=== PATIENT | female | born 1985 | race African-American/Black ===

== ENCOUNTER 2018-01-11 04:52 | Emergency (ER) | payer MEDICAID, OTHER | END 2018-01-11 07:50 | disposition home or self-care (01) | LOC: ERS 04:52 | DX: T40.7X1A Poisoning by cannabis (derivatives), accidental (unintentional), initial encounter (principal) | CPT/HCPCS: 99285 ==

== ENCOUNTER 2018-01-13 00:41 | Emergency (ER) | payer MEDICAID, OTHER ==
[2018-01-13] MEDS ORDERED: Ondansetron PF 4 MG/2 ML Vial ONE (01:04)
[2018-01-13] MEDS ORDERED: Morphine 4 MG/ML VIAL ONE (01:04)
[2018-01-13 01:50] LABS: BHCG - Serum Negative (NEGATIVE); Pregs Control Background? CLEAR/WHITE (CLR/WHITE); Pregs Control Bar Appear? YES (CONTROL BAR)
[2018-01-13 01:59] LABS: ALT (SGPT) 14 U/L (8-55); AST (SGOT) 18 U/L (5-34); Albumin 4.4 g/dL (3.5-5.0); Alkaline Phosphatase 64 U/L (40-150); Anion Gap 17 mmol/L (10-20); BUN (Urea Nitrogen) 29 mg/dL (7.0-18.7); Bilirubin, Total 0.6 mg/dL (0.2-1.2); Calc. Creatinine Clearance 0 mL/min (70-130); Calcium 10.2 mg/dL (7.8-10.44); Carbon Dioxide 22 mmol/L (22-29); Chloride 97 mmol/L (98-107); Estimated GFR-MDRD 50; Globulin 3.8 g/dL (2.4-3.5); Glucose 116 mg/dL (70-105); Lipase 20 U/L (8-78); Protein, Total 8.2 g/dL (6.0-8.3); Sodium 132 mmol/L (136-145)
[2018-01-13 02:04] LABS: PTT 26.4 SEC (22.9-36.1); Prothrombin Time 13.5 SEC (12.0-14.7)
[2018-01-13 02:06] LABS: Hemoglobin 13.5 g/dL (12.0-16.0); Mean Corpuscular HGB CONC 33.5 g/dL (32.0-36.0); Mean Corpuscular Hemoglobin 30.8 pg (27.0-31.0); Mean Corpuscular Volume 91.9 fL (78.0-98.0); Mean Platelet Volume 6.9 fL (7.4-10.4); Platelet Count 434 thou/uL (130-400); RBC Distribution Width 15.6 % (11.5-14.5); Red Blood Cell (RBC) Count 4.38 mill/uL (4.20-5.40); White Blood Cell (WBC) Count 11.3 thou/uL (4.8-10.8)
[2018-01-13 02:25] LABS: Band 4 % (5-11); Lymphocytes 14 % (21-51); MDiff Complete? YES; Monocytes 3 % (0-10); Neutrophil 79 % (42-75)
[2018-01-13 02:54] LABS: Bilirubin Negative (Negative); Blood, Urine Large (Negative); Clarity CLEAR (Clear); Glucose, Urine (Dipstick) Negative (Negative); Leukocyte Small (Negative); Nitrite Negative (Negative); Protein, Urine (Dipstick) 30 mg/dL (Neg-Trace); Urobilinogen 0.2 mg/dL (0.2-1.0)
[2018-01-13 02:57] LABS: Bacteria/HPF Rare-Few HPF (None Seen); Pathc Cast-AUWi Flag 0.87 (0-2.49); RBC/HPF 0-3 HPF (0-3)
[2018-01-13 03:10] LABS: Yeast-AUWi Flag 41.4 (0-25.0)
[2018-01-13 03:14] LABS: Hyaline Casts/LPF 0-3 HYALINE CAST LPF (0-3 Hyaline); Specific Gravity, Urine 1.045 (1.002-1.036); Yeast-All Forms None Seen HPF (None Seen)
--- NOTE | 2018-01-13 12:27 | CT ---
PRELIMINARY REPORT/[facility]/EMERGENCY AFTER HOURS PROCEDURE: EXAM: CT Abdomen and Pelvis With Contrast EXAM DATE/TIME: 01/13/2018 1:49 AM CLINICAL HISTORY: 32 years old, female; Pain; Abdominal pain; Acute; Prior surgery; Surgery date: 6+ months; Surgery ty pe: Gall blader and appy previously removed; Patient HX: PT reports abd pain for the past 5 days and active vomting with red emesis. 25mg phenergan given. 18 g r ac. Sbo vs ilius? TECHNIQUE: Axial computed tomography images of the abdomen and pelvis with intravenous contrast. Coronal reforma tted images were created and reviewed. COMPARISON: No relevant prior studies available. FINDINGS: Lower thorax: The lung bases are clear. Small hiatal hernia. ABDOMEN: Liver: There is fatty infiltration of the liver. There is a very small subcentimeter low attenuation area in the liver. The appearance is nonspecific, but statistically this most likely represents a small cyst or cavernous hemangioma. Gallbladder and bile ducts: Prior cholecystectomy, probably no significant biliary tree dilation. Pancreas: Unremarkable. Spleen: Unremarkable. Adrenals: Unremarkable. Kidneys and ureters: Unremarkable. Stomach and bowel: Possibility of slightly thickened mucosa/wall in the distal antrum of the stomach. This is a nonspecific appearance, and could be transient on CT, but could also represent evidence fo r gastritis or peptic ulcer disease. Please correlate clinically. There are no CT findings to strongly suggest diverticulitis. Appendix: Reportedly, there has been prior appendectomy. PELVIS: Bladder: Unremarkable as visualized. Reproductive: Unremarkable as visualized. ABDOMEN and PELVIS: Intraperitoneal space: No free air, ascites, or bowel distention. No abnormal mass or fluid collection in the pelvis. Bones/joints: No significant acute finding. Soft tissues: No significant acute finding. Vasculature: No evidence for abdominal aortic aneurysm. Lymph nodes: No retroperitoneal adenopathy. IMPRESSION: 1. No free air or bowel distention. No evidence for bowel obstruction. 2. Possible thickened mucosa/wall in the distal stomach, see above discussion. 3. Small hiatal hernia. 4. Other findings discussed above. Thank you for allowing us to participate in the care of your patient. Dictated and Authenticated by: Michael Sanches MD 01/13/2018 2:27 AM Central Time ([place] & [place]) FINAL REPORT EMERGENT AFTER HOURS CT ABDOMEN AND PELVIS: IMPRESSION: Agree with the preliminary interpretation given by MARGARITA. POS: PREMA
[2018-01-13] MEDS ORDERED: Iopamidol 370 76% 100 ML VIAL ONE (13:39)
== END 2018-01-13 03:40 | disposition home or self-care (01) ==
LOC: ERS 00:41
DX: R10.13 Epigastric pain (principal); R11.2 Nausea with vomiting, unspecified; F17.210 Nicotine dependence, cigarettes, uncomplicated
CPT/HCPCS: 36415; 74177; 80053; 81003; 81015; 83690; 84703; 85025; 85610; 85730; 86850; 86900; 86901; 96361; 96374; 96375; J2270; J2405

== ENCOUNTER 2018-02-13 11:10 | Emergency (ER) | payer OTHER | END 2018-02-13 12:34 | disposition home or self-care (01) | LOC: ERS 11:10 | DX: J06.9 Acute upper respiratory infection, unspecified (principal); F41.9 Anxiety disorder, unspecified; F17.210 Nicotine dependence, cigarettes, uncomplicated | CPT/HCPCS: 99283 ==

== ENCOUNTER 2018-09-01 03:51 | Inpatient (IN) | payer OTHER ==
[2018-09-01] MEDS ORDERED: Lorazepam 2 MG/ML VIAL ONE (04:19)
[2018-09-01 05:14] LABS: #Lymphocytes 1.9 thou/uL (1.20-3.40); #Monocytes 0.8 thou/uL (0.11-0.59); #Neutrophils 9.6 thou/uL (1.40-6.50); %Basophils 0.4 % (0.0-1.0); %Eosinophils 0.2 % (0.0-10.0); %Lymphocytes 15.2 % (21.0-51.0); %Monocytes 6.7 % (0.0-10.0); %Neutrophils 77.5 % (42.0-75.0); Hemoglobin 12.5 g/dL (12.0-16.0); Mean Corpuscular HGB CONC 33.1 g/dL (32.0-36.0); Mean Corpuscular Hemoglobin 29.6 pg (27.0-31.0); Mean Corpuscular Volume 89.5 fL (78.0-98.0); Mean Platelet Volume 6.6 fL (7.4-10.4); Platelet Count 399 thou/uL (130-400); RBC Distribution Width 15.8 % (11.5-14.5); Red Blood Cell (RBC) Count 4.23 mill/uL (4.20-5.40); White Blood Cell (WBC) Count 12.4 thou/uL (4.8-10.8)
[2018-09-01 05:29] LABS: ALT (SGPT) 12 U/L (8-55); AST (SGOT) 23 U/L (5-34); Acetaminophen Less than 6.0 mcg/mL (10.0-30.0); Alcohol Less than 10 mg/dL (Less than 10); Alkaline Phosphatase 57 U/L (40-150); Anion Gap 16 mmol/L (10-20); BUN (Urea Nitrogen) 32 mg/dL (7.0-18.7); Bilirubin, Total 0.6 mg/dL (0.2-1.2); CK (CPK) 925 U/L (29-168); Calc. Creatinine Clearance 0 mL/min (70-130); Calcium 9.2 mg/dL (7.8-10.44); Carbon Dioxide 19 mmol/L (22-29); Chloride 103 mmol/L (98-107); Estimated GFR-MDRD 38; Globulin 3.3 g/dL (2.4-3.5); Glucose 110 mg/dL (70-105); Magnesium 2.1 mg/dL (1.6-2.6); Potassium 3.7 mmol/L (3.5-5.1); Protein, Total 7.3 g/dL (6.0-8.3); Salicylate Less than 8.0 mg/dL (15.0-30.0); Sodium 134 mmol/L (136-145)
[2018-09-01] MEDS ORDERED: Acetaminophen 325 MG TAB PO PRN (06:14)
[2018-09-01] MEDS ORDERED: Senokot S 8.6-50 MG TAB PO PRN (06:14)
[2018-09-01] MEDS ORDERED: Ondansetron PF 4 MG/2 ML Vial IVP PRN (06:18)
[2018-09-01 08:21] LABS: INR-International Normal Ratio 1.1; Prothrombin Time 14.1 SEC (12.0-14.7)
[2018-09-01] MEDS ORDERED: Famotidine/PF 20 mg/2ml Vial SLOW IVP SCH ×2 (09:00→22:15)
[2018-09-01] MEDS: Sodium Chloride 0.9% 1,000 ML IV SCH ×3 (09:00→20:37)
[2018-09-01 09:22] VITALS: BMI 21.7
[2018-09-01] MEDS: Heparin 5,000 UNITS/ML VIAL SC SCH ×3 (10:31→20:36)
[2018-09-01] MEDS: Cephalexin 250 MG CAP PO SCH ×3 (12:30→23:40)
--- NOTE | 2018-09-01 13:28 | HP ---
CHIEF COMPLAINT: Significant nausea, vomiting, and altered mental status. HISTORY OF PRESENT ILLNESS: The patient is a 32-year-old female, who initially presented to the hospital actually in [place] with complaints of abdominal pain; however, she left AMA. The patient was brought back in by the patient's mother for having continues nausea and also abdominal pain. There is a history of drug abuse; however, the mother states that she has not been doing any drugs or smoking or drinking any alcohol. She apparently in the ER in [place] was being very uncooperative and was trying to get out of bed and not really following commands. She was redirected and she was given some sedation medications. The patient's mother stated that last week, she had some dental pain and was given antibiotics and NSAIDs. She still is on antibiotics. She does not recall the name of antibiotics. The mother also states that she has been pacing and not been sleeping very much for the past 3 days. She states that her daughter has anxiety and sometimes the anxiety takes over and she just cannot sleep. She also has been complaining of nausea, vomiting, and some diarrhea. PAST MEDICAL HISTORY: She has a history of anxiety and some drug use. SURGICAL HISTORY: Per mother, appendectomy and cholecystectomy. SOCIAL HISTORY: Currently denies any drug use; however, has history of K2 use. No smoking history. No alcohol use. She is a full code. Lives with her mother and daughter. ALLERGIES: SHE HAS NO KNOWN DRUG ALLERGIES. MEDICATIONS: According to the mother, she only is on antibiotic. She takes no other medications. FAMILY HISTORY: No history of significant heart disease. PHYSICAL EXAMINATION: VITAL SIGNS: Temperature of 98.8, respirations 18, pulse of 107, blood pressure of 122/86. She is 100% on room air. GENERAL: She is sedated, however, is arousable and follows commands. She did get up and walk to the bathroom. HEENT: Normocephalic and atraumatic. No lymphadenopathy noted. Pupils are equal and reactive to light. CV: S1 and S2 present. No murmurs, rubs, or gallops. LUNGS: Clear to auscultation. No rhonchi or wheezes noted. ABDOMEN: Soft. Mild pain upon palpation to lower abdominal area. EXTREMITIES: No edema. Pedal pulses are present x2. NEUROVASCULAR: No focal deficits noted. SKIN: No cuts, lesions, or bruises noted. LABORATORY RESULTS: As of the following; WBCs of 12.4, hemoglobin of 12.5, hematocrit of 37.8, and her platelets are 399. Chemistry; sodium of 134, potassium of 3.7, BUN of 32, creatinine 1.89. Her CK initially was 1200, it went down to 925; and her troponin was 0.010. Initially, her creatinine was 2.99. She also had an elevated calcium level, this was per earlier records from [place]. She had an EKG that indicated sinus tach. She did have a urine screen. Alcohol level was less than 10 and so was her salicylates and acetaminophen level. ASSESSMENT AND PLAN: The patient is a 32-year-old female, who presents to the hospital with some nausea, vomiting, and also some altered mental status. 1. Acute metabolic encephalopathy the patient on some IV hydration. Her CK is coming down. Unclear if this is secondary to drug use. We will check a UDS; however, if she is taking K2 that will not show up in her urine. Also, she did have a CT brain and a CT of abdomen and pelvis, which are both pending reads. According to my interpretation, CT brain did not show any acute abnormalities, and her CT of abdomen and pelvis showed some thickening of her stomach. I will wait for the official report per Radiology. 2. Acute kidney injury. I will start her on some IV hydration. She is urinating. Her CAT scan does not show any signs of hydronephrosis. We will continue to monitor. She probably mostly has a component of dehydration, this is most likely secondary to prerenal. 3. Nausea, vomiting, and abdominal pain, unclear. The patient is really not able to verbalize. She is a kind of drowsy. I will check a test, given her age of 32, and again she did have a CT of abdomen and pelvis. I will wait for the official read. She does not have a gallbladder, may consider right upper quadrant ultrasound. Also, we will start the patient on clear liquid diet. I will put the patient on a PPI for now. 4. History of anxiety. The patient on her medication records appears that she is supposed to be on Zoloft; however, I am unclear if she is really taking it or not. The patient's mother states that she needs a prescription. However, again, the patient is not in a state to be questioned right now. 5. Deep venous thrombosis prophylaxis. We will put the patient on some heparin. Job ID: [id number]
[2018-09-01 14:25] LABS: Bacteria/HPF None Seen HPF (None Seen); Bilirubin Negative (Negative); Blood, Urine 2+ (Negative); Clarity Clear (Clear); Glucose, Urine (Dipstick) Normal (Negative); Leukocyte 75 Leu/uL (Negative); Nitrite Negative (Negative); Protein, Urine (Dipstick) 20 mg/dL (Neg-Trace); RBC/HPF 0-3 HPF (0-3); Urobilinogen Normal mg/dL (Less than 2)
[2018-09-01 14:28] LABS: Pregnancy Test - Urine (BHCG) Negative (Negative); Pregu Control Background? CLEAR/WHITE (CLR/WHITE); Pregu Control Bar Appear? YES (CONTROL BAR); Specific Gravity 1.027 (1.002-1.036)
[2018-09-01 14:29] LABS: Amphetamine Not Detected (NotDetected); Barbiturates Screen Not Detected (NotDetected); Benzodiazepine Screen Detected (NotDetected); Cocaine Metabolite Screen Not Detected (NotDetected); Medtox Control Line Valid? VALID (VALID); Medtox Reader # READER 1; Methadone Not Detected (NotDetected); Methamphetamine Not Detected (NotDetected); Opiate Screen Not Detected (NotDetected); Oxycodone Screen Not Detected (NotDetected); Phencyclidine (PCP) Not Detected (NotDetected); THC/Cannabinoid Screen Not Detected (NotDetected); Tricyclic Screen Not Detected (NotDetected)
[2018-09-01 14:31] LABS: Urine Culture Reflex No No
--- NOTE | 2018-09-01 17:11 | PDOC.HOSPP ---
- Subjective Subjective: Says she is feeling better. No nausea. No abdominal pain. - Objective Vital Signs & Weight: Vital Signs (12 hours) Temp Pulse Resp BP BP Pulse Ox 09/01/18 12:00 97.9 F 102 H 16 141/98 H 09/01/18 08:00 99 09/01/18 07:30 98.6 F 108 H 133/89 99 Weight Weight 122 lb 4.8 oz I&O: 08/31/18 09/01/18 09/02/18 06:59 06:59 06:59 Intake Total 600 Balance 600 Result Diagrams: 09/01/18 04:34 09/01/18 04:34 ROS - Review of Systems All systems: All other ROS were reviewed and found negative. - Medication Medications: Active Medications Generic Name Dose Route Start Last Admin Trade Name Freq PRN Reason Stop Dose Admin Cephalexin 250 mg 09/01/18 12:00 09/01/18 12:30 Keflex PO 250 mg Q6HR ADAN Administration Famotidine 20 mg 09/01/18 09:00 09/01/18 10:31 Pepcid SLOW IVP 20 mg DAILY ADAN Administration Heparin Sodium (Porcine) 5,000 units 09/01/18 09:00 09/01/18 15:05 Heparin SC 5,000 units TID ADAN Administration Sodium Chloride 1,000 mls @ 150 mls/hr 09/01/18 06:15 09/01/18 14:45 Normal Saline 0.9% IV 1,000 mls .[id number] ADAN Administration - Exam NAD Heart: RRR, no murmur, no gallops, no rubs, normal peripheral pulses Respiratory: CTAB, no wheezes, no rales, no ronchi, normal chest expansion, no tachypnea, normal percussion Gastrointestinal: soft, non-tender, non-distended, normal bowel sounds, no palpable masses, no hepatomegaly, no splenomegaly, no bruit Extremities: no cyanosis, no clubbing, no edema Neurological: no focal deficits (Still looks slightly intoxicated, but speaking and ambulating fairly well.) Hosp A/P (1) Acute metabolic encephalopathy Code(s): G93.41 - METABOLIC ENCEPHALOPATHY Status: Acute (2) Rhabdomyolysis Code(s): M62.82 - RHABDOMYOLYSIS Status: Acute (3) Acute kidney injury Code(s): N17.9 - ACUTE KIDNEY FAILURE, UNSPECIFIED Status: Acute (4) Dehydration Code(s): E86.0 - DEHYDRATION Status: Acute (5) Nausea & vomiting Code(s): R11.2 - NAUSEA WITH VOMITING, UNSPECIFIED Status: Acute - Plan Appears that she is improving. Suspect she is intoxicated. Continue IVF and recheck DK in am.
[2018-09-01 22:10] LABS: #Lymphocytes 3.1 thou/uL (1.20-3.40); #Monocytes 0.9 thou/uL (0.11-0.59); #Neutrophils 6.3 thou/uL (1.40-6.50); %Basophils 0.4 % (0.0-1.0); %Eosinophils 0.4 % (0.0-10.0); %Lymphocytes 30.1 % (21.0-51.0); %Monocytes 8.6 % (0.0-10.0); %Neutrophils 60.6 % (42.0-75.0); Hemoglobin 12.6 g/dL (12.0-16.0); Mean Corpuscular HGB CONC 33.6 g/dL (32.0-36.0); Mean Corpuscular Hemoglobin 30.4 pg (27.0-31.0); Mean Corpuscular Volume 90.6 fL (78.0-98.0); Mean Platelet Volume 6.3 fL (7.4-10.4); Platelet Count 421 thou/uL (130-400); RBC Distribution Width 15.8 % (11.5-14.5); Red Blood Cell (RBC) Count 4.14 mill/uL (4.20-5.40); White Blood Cell (WBC) Count 10.3 thou/uL (4.8-10.8)
[2018-09-01] MEDS: Lidocaine 2% Viscous Solution 10 ML, Aluminum & Magnesium Hydroxide 30 ML SSW SCH ×2 (22:31→22:54)
[2018-09-01 22:36] LABS: Anion Gap 12 mmol/L (10-20); BUN (Urea Nitrogen) 14 mg/dL (7.0-18.7); Calc. Creatinine Clearance 93 mL/min (70-130); Calcium 9.4 mg/dL (7.8-10.44); Carbon Dioxide 21 mmol/L (22-29); Chloride 106 mmol/L (98-107); Estimated GFR-MDRD Greater than 90; Glucose 101 mg/dL (70-105); Potassium 3.6 mmol/L (3.5-5.1); Sodium 135 mmol/L (136-145)
[2018-09-01 23:36] VITALS: TEMP 98
[2018-09-02] MEDS ORDERED: Melatonin 3 MG TAB PO PRN (01:36)
[2018-09-02] MEDS: Sodium Chloride 0.9% 1,000 ML IV SCH (02:40)
[2018-09-02 03:57] LABS: #Monocytes 0.8 thou/uL (0.11-0.59); #Neutrophils 5.4 thou/uL (1.40-6.50); %Basophils 0.5 % (0.0-1.0); %Eosinophils 0.5 % (0.0-10.0); %Lymphocytes 24.2 % (21.0-51.0); %Monocytes 9.6 % (0.0-10.0); %Neutrophils 65.2 % (42.0-75.0); Hemoglobin 11.3 g/dL (12.0-16.0); Mean Corpuscular HGB CONC 33.7 g/dL (32.0-36.0); Mean Corpuscular Hemoglobin 30.5 pg (27.0-31.0); Mean Corpuscular Volume 90.6 fL (78.0-98.0); Mean Platelet Volume 6.5 fL (7.4-10.4); Platelet Count 400 thou/uL (130-400); RBC Distribution Width 15.7 % (11.5-14.5); Red Blood Cell (RBC) Count 3.71 mill/uL (4.20-5.40); White Blood Cell (WBC) Count 8.3 thou/uL (4.8-10.8)
[2018-09-02 04:20] LABS: ALT (SGPT) 12 U/L (8-55); AST (SGOT) 29 U/L (5-34); Albumin 3.7 g/dL (3.5-5.0); Alkaline Phosphatase 45 U/L (40-150); Anion Gap 10 mmol/L (10-20); BUN (Urea Nitrogen) 13 mg/dL (7.0-18.7); Bilirubin, Total 0.9 mg/dL (0.2-1.2); CK (CPK) 704 U/L (29-168); Calc. Creatinine Clearance 103 mL/min (70-130); Calcium 9.1 mg/dL (7.8-10.44); Carbon Dioxide 24 mmol/L (22-29); Chloride 106 mmol/L (98-107); Estimated GFR-MDRD Greater than 90; Globulin 2.7 g/dL (2.4-3.5); Glucose 126 mg/dL (70-105); Potassium 3.3 mmol/L (3.5-5.1); Protein, Total 6.4 g/dL (6.0-8.3); Sodium 137 mmol/L (136-145)
[2018-09-02 05:05] VITALS: BP 145/67
== END 2018-09-02 05:00 | disposition left against medical advice (07) | DRG 682 ==
LOC: ERS 03:51 → ERHOLD 05:06 → T4-B 07:40
PROVIDERS: ADMIT Internal Medicine; ATTEND Internal Medicine
DX: N17.9 Acute kidney failure, unspecified (principal); G93.41 Metabolic encephalopathy; M62.82 Rhabdomyolysis; F41.9 Anxiety disorder, unspecified; E86.0 Dehydration; Z90.49 Acquired absence of other specified parts of digestive tract
CPT/HCPCS: 36415; 36416; 80053; 80306; 80307; 81001; 81025; 82550; 83605; 83735; 84484; 85025; 85610; 96361; 96374; J1644; J2060; S0028